=== PATIENT | female | born 1940 | race Caucasian/White ===

== ENCOUNTER 2017-09-05 01:53 | Outpatient (CLI) | payer MEDICARE, MEDICAID ==
--- NOTE | ~2017-09-05 | HEMODYNAMI ---
PATIENT:WILL HAYNES MEDICAL RECORD: [id number] : 40 [facility] ADMISSION DATE: 09/05/17 Generatedon:09/05/201711:07 Patient name: WILL HAYNES Patient #: [id number] SSN: : 1940 Date of study: 09/05/2017 Page: Of Hemodynamic Procedure Report Patient Data Patient Demographics Procedure consent was obtained First Name: WILL Gender: Female Last Name: DALLAS : 1940 Middle Initial: M Age: 77 year(s) Patient #: [id number] Race: Additional ID: [id number] Contact details Address: [facility] [address] State: [place] City: [place] Zip code: [address] Admission Admission Data Admission Date: 09/05/2017 Admission Time: 4:14 Admit Source: Other Room #: D.2123 Weight (lbs.): 176.37 Weight (kg.): 80 Procedure Procedure Types Cath Procedure Diagnostic Procedure C [facility] w/Coronaries Miscellaneous Procedures Moderate Sedation up to 15 minutes Peripheral Cath Diagnostic Procedure Cath Peripheral Four Vessel Arteriogram Procedure Description Procedure Date Procedure Date: 09/05/2017 Procedure Start Time: 10:52 Procedure End Time: 11:06 Procedure Staff Name Function Jerod King MD Performing Physician Jessica Monique RT Scrub Daily Sandoval RN Nurse Aleks Best RT Monitor Procedure Data Cath Procedure Fluoroscopy Diagnostic fluoroscopy Total fluoroscopy Time: 4.8 time: 4.8 min min Diagnostic fluoroscopy Total fluoroscopy dose: 448 dose: 448 mGy mGy Contrast Material Contrast Material Type Amount (ml) Isovue 300 127 Entry Location Entry Primary Successful Side Size Upsize Upsize Entry Closure Succes sful Closure Location (Fr) 1 (Fr) 2 (Fr) Remarks Device Remarks Femoral Right 5 Fr Exoseal artery Estimated blood loss: 10 ml Diagnostic catheters Device Type Used For End Catheter Placement Cordis 5Fr JL 4.0 Procedure Catheter (MP) Cordis 5Fr 3DRC Catheter Procedure (MP) Cordis 5Fr Pigtail Procedure Catheter (MP) Procedure Complications No complications Procedure Medications Medication Administration Route Dosage Oxygen NC 2 l/min Heparin Flush Bag added to field 2 bags (1000units/500ml NS) 0.9% NaCl I.V. 100 ml/hr Lidocaine 2% added to field 20 Versed I.V. 1 mg Fentanyl I.V. 50 mcg Versed I.V. 1 mg Fentanyl I.V. 50 mcg Hemodynamics Rest Heart Rate: 64 (bpm) Pressure Samples Time Site Value (mmHg) Purpose Heart Use Rate(bpm) 10:53 AO 119/49(75) Snapshot 61 11:02 LV 134/12,21 Snapshot 64 11:02 AO 147/53(82) Pullback 64 11:02 LV 132/17,23 Pullback 64 Gradients Valve Time Site 1 Site 2 Mean SEP/DFP Peak To Heart Use (mmHg) (sec/min) Peak Rate (mmHg) (bpm) Aortic 11:02 LV AO 0 14 0 64 132/17,23 147/53(82) Calculations Valve P-P Mean Valve Index Valve Source Name Gradient Area Flow (cm2) Aortic 0 0 0 0 Snapshots Pre Cath Intra NCS Post Cath Vital Signs Time Heart Resp SPO2 etCO2 NIBP (mmHg) Rhythm Pain Sedation Rate (ipm) (%) (mmHg) Status Level (bpm) 10:42:45 62 19 98 41.3 173/77(128) NSR 0 (11) 10(A) , No pain 10:47:54 60 20 95 43.5 156/65(104) NSR 0 (11) 10(A) , No pain 10:53:05 57 15 97 45 144/54(101) NSR 0 (11) 9(A) , No pain 10:58:13 62 20 96 42.8 146/71(103) NSR 0 (11) 10(A) , No pain 11:03:22 62 16 97 47.3 148/66(104) NSR 0 (11) 10(A) , No pain Medications Time Medication Route Dose Verified Delivered Reason Notes Effe ctiveness by by 10:45:24 Oxygen NC 2 Jerod Ambrosio used for l/min St. Matt Sandoval RN procedure 10:46:09 Heparin Flush added 2 Jerod Newsome used for Bag to bags St. Matt King procedure (1000units/500ml field MD CABRERA NS) 10:46:19 0.9% NaCl I.V. 100 Jerod Buffie Per ml/hr Aptos Lori RN physician 10:46:37 Lidocaine 2% added 20ml Jerod Southory for local to vial [facility] anesthetic field MD CABRERA 10:48:43 Versed I.V. 1 mg [address] [facility]. Matt Sandoval RN sedation 10:48:55 Fentanyl I.V. 50 Jerod Buff[address] for mcg [facility] Matt Sandoval RN sedation 10:53:12 Versed I.V. 1 mg Jerod Buffie for ChristineMatt Sandoval RN sedation 10:53:16 Fentanyl I.V. 50 Jerod Buffie for [facility] Matt Sandoval RN sedation Procedure Log Time Note 10:15:37 Aleks Best RT(R) sent for patient. Start room use. 10:24:26 Admit Source: Other 10:24:44 Patient Weight : 176.37 lbs 10:24:58 Procedure type changed to Cath procedure, Diagnostic procedure, LHC, LHC w/Coronaries, Miscellaneous Procedures, Moderate Sedation up to 15 minutes, Peripheral Cath Diagnostic Procedure, Cath Peripheral, Four Vessel Arteriogram 10:25:12 Diagnostic Cath Status : Elective 10:25:38 Time tracking: Call back 10:26:11 Plan of Care:Hemodynamics will remain stable., Cardiac rhythm will remain stable., Comfort level will be maintained., Respiratory function will remain adequate., Patient/ family verbilizes understanding of procedure., Procedure tolerated without complication., Recovers from procedure without complications.. 10:35:35 Patient received from PCU to CCL 1 Alert and oriented. Tansferred to table in Supine position. 10:35:36 Warm blankets applied, and cheli hugger turned on for patient comfort. 10:35:36 Correct patient and procedure confirmed by team. 10:35:37 Signed procedure consent form obtained from patient. 10:35:38 ECG and BP/O2 sat monitors applied to patient. 10:40:35 Vital chart was started 10:40:36 Baseline sample Acquired. 10:40:40 Rhythm: sinus rhythm 10:40:41 Full Disclosure recording started 10:40:44 H&P Date Dictated: 09/05/2017 Within 30 days and on chart.. 10:40:45 Pre-procedure instructions explained to patient. 10:40:45 Pre-op teaching completed and patient verbalized understanding. 10:40:47 Family in patients room. 10:40:48 Patient NPO since Midnight. 10:40:49 Is the patient allergic to Iodine/contrast media? No. 10:40:51 Is patient on blood thinner?No 10:40:52 Patient diabetic? Yes. 10:40:53 If diabetic: On Metformin? No 10:40:55 Patient not . Patient is over age 55. 10:42:07 Previous problem with sedation/anesthesia? No ? 10:42:08 Snore? Yes 10:42:09 Sleep apnea? No 10:42:10 Deviated septum? No 10:42:11 Opens mouth fully? Yes 10:42:12 Sticks out tongue? Yes 10:42:14 Airway obstruction? No possible asthma 10:42:16 Dentures? No ? 10:42:19 Pre procedure: right dorsailis pedis pulse 1+ Palpable, but thready & weak; easily obliterated 10:42:21 Patient pain scale 0/10 ?. 10:42:49 IV patent on arrival in left antecubital with 0.9% NaCl at O. 10:42:51 Lab results completed and on chart. 10:42:54 Right groin area was prepped with chlora-prep and draped in sterile fashion 10:42:55 Alarms reviewed by R. N. 10:42:56 Sharps counted by scrub and verified by R.N. 10:42:57 Physician paged 10:43:00 Use device set Femoral Dx 10:43:01 Tegaderm 4 x 4 opened to sterile field. 10:43:02 Acist Hand Control opened to sterile field. 10:43:02 Acist Manifold opened to sterile field. 10:43:03 Acist Syringe opened to sterile field. 10:43:04 Bag Decanter opened to sterile field. 10:43:04 Medline Cath Pack opened to sterile field. 10:43:04 Terumo 5Fr [place] Sheath opened to sterile field. 10:43:05 St Haim 260cm J .035 wire opened to sterile field. 10:43:06 Diagnostic Infinity 5Fr Multipack catheter opened to sterile field. 10:45:24 Oxygen 2 l/min NC was administered by Daily Sandoval RN; used for procedure; 10:46:09 Heparin Flush Bag (1000units/500ml NS) 2 bags added to field was administered by Jerod King MD; used for procedure; :46:13 --------ALL STOP TIME OUT------ 10:46:13 Final Timeout: patient, procedure, and site verified with staff and physician. All members of the team are in agreement. 10:46:17 Right groin site verified by team. 10:46:19 0.9% NaCl 100 ml/hr I.V. was administered by Daily Sandoval RN; Per physician; 10:46:20 Physical assessment completed. ASA score P 2 - A patient with mild systemic disease as per Jerod King MD. 10:46:26 Sedation plan: IV Moderate Sedation Versed, Fentanyl 10:46:37 Lidocaine 2% 20ml vial added to field was administered by Jerod King MD; for local anesthetic; 10:48:43 Versed 1 mg I.V. was administered by Daily Sandoval RN; for sedation; 10:48:55 Fentanyl 50 mcg I.V. was administered by Daily Sandoval RN; for sedation; 10:52:40 Procedure started. 10:52:42 Local anesthetic to right femoral artery with Lidocaine 2% by Jerod King MD.INITIAL ACCESS ONLY 10:53:12 Versed 1 mg I.V. was administered by Daily Sandoval RN; for sedation; 10:53:16 Fentanyl 50 mcg I.V. was administered by Daily Sandoval RN; for sedation; 10:53:34 A 5 Fr sheath was inserted into the Right Femoral artery 10:53:39 A Cordis 5Fr JL 4.0 Catheter (MP) was advanced over the wire and used for Procedure. 10:53:50 LCA angiography performed. 10:54:17 Catheter removed. 10:54:22 A Cordis 5Fr 3DRC Catheter (MP) was advanced over the wire and used for Procedure. 10:55:21 RCA angiography performed. 10:58:11 Right carotid angiography performed. 10:58:16 Left carotid angiography performed. 11:00:30 Catheter removed. 11:00:36 A Cordis 5Fr Pigtail Catheter (MP) was advanced over the wire and used for Procedure. 11:01:52 LV angiography performed. 11:01:54 LV gram done using GUNN 11:01:59 EF : 55 % 11:02:00 LV hemodynamics recorded. 11:02:08 Injector settings: Ml/sec: 10, Volume: 20, 11:02:36 Catheter removed. 11:02:47 Cordis 5Fr Exoseal opened to sterile field. 11:02:57 Sheath removed intact; hemostasis achieved with Exoseal to the Right Femoral artery. 11:02:58 Procedure ended.(Physican Out) 11:03:13 Contrast amount:Isovue 300 127ml. 11:03:18 Fluoroscopy time 04.80 minutes. 11:03:22 Flurop Dose total: 448 11:03:22 Fluoroscopy dose: 448 mGy 11:03:45 Sharps counted by scrub and verified by R.N. 11:03:46 Insertion/operative site no bleeding no hematoma. 11:03:48 Post-op/insertion site Right Femoral artery dressed using a 4 x 4 and Tegaderm. 11:03:50 Post Procedure Pulses reassessed and unchanged 11:03:52 Post-procedure physical assessment completed. ASA score P 2 - A patient with mild systemic disease as per Jerod King MD. 11:03:55 Post procedure rhythm: unchanged. 11:03:57 Estimated blood loss: 10 ml 11:03:59 Post procedure instruction explained to patient.Patient verbalizes understanding. 11:03:59 Patient needs reinforcement of post procedure teaching. 11:04:00 Procedure and supply charges have been captured, reviewed, submitted and are correct. 11:04:03 Procedure Complication : No complications 11:06:33 Vital chart was stopped 11:06:33 See physician's report for complete and final results. 11:06:37 Report given to PCU. 11:06:40 Patient transfered to PCU with Bed. 11:06:42 Procedure ended. 11:06:42 Full Disclosure recording stopped 11:06:46 End room use (Document Last) Device Usage Item Name Manufacture Quantity Catalog Hospital Part Current Minimal Lo t# / Number Charge Number Stock Stock Serial# Code Tegaderm 4 3M 1 [id number] [id number] [id number] 5 x 4 Acist Hand Acist 1 87612 691168 682077 153297 5 NuLife Recovery Acist Acist 1 64380 366852 992498 530858 5 Manifold [employer] Inc Acist Acist 1 77513 273945 263388 069056 20 Syringe Medical Systems Inc Bag Microtek 1 2002S 927885 07190 433140 5 Decanter [employer] Inc. Medline Cardinal 1 [id number] 247712 34548 661530 5 Cath Pack Health Terumo 5Fr Terumo 1 [id number] 108710 108749 831866 [address] Haim 1 620644 465688 201121 968536 30 260cm J .035 wire Diagnostic Cardinal 1 [id number] 278614 81829 309581 30 Infinity Health 5Fr Multipack catheter Cordis 5Fr Cardinal 1 775319 5 JL 4.0 Health Catheter (MP) Cordis 5Fr Cardinal 1 267074 5 3DRC Health Catheter (MP) Cordis 5Fr Cardinal 1 653911 5 Pigtail Health Catheter (MP) Cordis 5Fr Cardinal 1 EX500 786438 592761 757439 10 Tocagen Signature Audit Hannibal Stage Time Signature Unsigned Intra-Procedure 09/05/2017 Aleks Best 11:07:02 AM RT(R) Signatures Monitor : Aleks Best RT Signature : Date : Time : [id number] [place] [address]
[~2017-09-05 01:53] MED LIST: BAYER CHEWABLE81 MG PO; BRILINTA90 MG PO; COZAAR50 MG PO; HYDROCHLOROTHIA50 MG PO; JANUVIA100 MG PO; METOPROLOL TART50 MG PO; NITROQUICK0.4 MG SL; PRILOSEC20 MG PO; SYNTHROID50 MCG PO; ZOCOR20 MG PO
[2017-09-05 02:21] LABS: BASOPHILS 0.3 % (0-2); EOSINOPHILS 1.4 % (0-7); HEMATOCRIT 41.3 % (36.0-48.0); HEMOGLOBIN 13.7 g/dL (12-16); IMMATURE GRANULOCYTES 0.3 % (0-5); LYMPHOCYTES 16.7 % (15-50); MCHC 33.2 g/dL (31.0-37.0); MCV 93.4 fL (80.0-100.0); MEAN PLATELET VOLUME 9.3 fL (7.4-10.4); MONOCYTES 5.8 % (2-11); NEUTROPHILS 75.5 % (40-80); PLATELET COUNT 199 10x3/uL (130-400); RBC 4.42 10x6/uL (4.00-5.40); RDW 12.3 % (11.5-14.5); WBC 14.4 10x3/uL (4.8-10.8)
[2017-09-05 02:34] LABS: ALBUMIN 3.3 g/dL (3.4-5.0); ALKALINE PHOSPHATASE 79 U/L (46-116); ALT (SGPT) 21 U/L (10-68); CALC OSMOLALITY 285 mosm/kg (275-300); CALCIUM 8.2 mg/dL (8.5-10.1); CARBON DIOXIDE 31.3 mmol/L (21.0-32.0); CHLORIDE - SERUM 102 mmol/L (98-107); CREATININE - SERUM 1.1 mg/dL (0.6-1.3); GLUCOSE 174 mg/dL (74-106); POTASSIUM - SERUM 3.4 mmol/L (3.5-5.1); PROTEIN - SERUM 6.9 g/dL (6.4-8.2); SODIUM 140 mmol/L (136-145); UREA NITROGEN 22 mg/dL (7-18); eGFR NON AFRICAN AMERICAN 51 mL/min (90-120)
[2017-09-05 02:52] LABS: CKMB 0.2 U/L (0.0-3.6); CREATINE KINASE 37 UL (21-215)
[2017-09-05 02:53] LABS: CHOL - HDL RATIO 2.5 ratio (2.3-4.1); CHOLESTEROL, TOTAL 172 mg/dL (0-200); HDL CHOLESTEROL 68 mg/dL (32-96); LDL CHOLESTEROL 84 mg/dL (0-100); LDL-HDL RATIO 1.2 ratio (1.5-3.5); TRIGLYCERIDE 103 mg/dL (30-200)
[2017-09-05 04:00] VITALS: BP 149/47
--- NOTE | 2017-09-05 04:48 | NUR ---
PATIENT ARRIVED FROM THE ER VIA STRETCHER, SON IS AT BEDSIDE. ALERT AND ORIENTED TO ROOM AND CALL LIGHT. 18 G IV IN LEFT AC SALINE LOCKED. CALL LIGHT PLACED IN REACH.
[2017-09-05] MEDS ORDERED: PROPAFENONE HC225 MG PO (04:55)
[2017-09-05] MEDS ORDERED: VALIUM5 MG PO (04:56)
[2017-09-05 05:14] VITALS: BP 149/47; BMI 32.2
--- NOTE | 2017-09-05 05:20 | NUR ---
ADMISSION ASSESSMENT DONE. VSS. SB PER CM HR 59. PT DENIES ANY DISCOMFORT. WILL CONTINUE TO MONITOR.
[2017-09-05 08:00] VITALS: BP 118/51
[2017-09-05 08:53] LABS: ANION GAP 17.9 mmol/L (8-16); BASOPHILS 0.3 % (0-2); CALCIUM 8.3 mg/dL (8.5-10.1); CARBON DIOXIDE 21.6 mmol/L (21.0-32.0); CREATININE - SERUM 1.1 mg/dL (0.6-1.3); EOSINOPHILS 0.8 % (0-7); HEMATOCRIT 39.8 % (36.0-48.0); HEMOGLOBIN 13.2 g/dL (12-16); IMMATURE GRANULOCYTES 0.3 % (0-5); LYMPHOCYTES 19.7 % (15-50); MCH 31.4 pg (26.0-34.0); MCHC 33.2 g/dL (31.0-37.0); MCV 94.5 fL (80.0-100.0); MEAN PLATELET VOLUME 9.8 fL (7.4-10.4); NEUTROPHILS 72.9 % (40-80); PLATELET COUNT 211 10x3/uL (130-400); POTASSIUM - SERUM 3.5 mmol/L (3.5-5.1); RBC 4.21 10x6/uL (4.00-5.40); RDW 12.5 % (11.5-14.5)
[2017-09-05 08:54] LABS: WBC 10.7 10x3/uL (4.8-10.8)
--- NOTE | 2017-09-05 10:30 | NUR ---
TO LOCAL COORDINATOR
--- NOTE | 2017-09-05 10:35 | NUR ---
ASSESSMENT COMPLETED.SL TO LEFT AC. O2 AT 3 L/M PER TN TELEMERTY SHOW SB. DENIES ANY NEEDS, READY FOR X RAY PHYSICIAN
--- NOTE | 2017-09-05 11:01 | NUR ---
ASSESSMENT COMPLETED. DENIES ANY NEEDS. TELEMERTY SHOWS PREEIT CARDIA AT 56. NPO FOR CATH. SR UP WITH CALL LIGHT IN REACH. WII MONITOR
--- NOTE | 2017-09-05 13:22 | NUR ---
LYING QUIETLY WITH EYES CLOSED. RIGHT GROIN SOFT WITH DRSG DRY AND INTACT. FAMILY AT BEDSIDE. V/S STABLE. CALL LIGHT IN REACH WITH SR UP
--- NOTE | 2017-09-05 16:02 | NUR ---
DISCHARGED. IV DCD WITH TIP INTACT. NO BLEEDING FROM CATH SITE. T0 PRIVATE CAR PER WHEEL CHAIR
--- NOTE | 2017-09-07 11:08 | OP ---
PATIENT NAME: WILL HAYNES MEDICAL RECORD: [id number] :40 LOCATION:D. D.3 ADMISSION DATE:09/05/17 SURGEON: MAINE WEST MD DATE OF OPERATION: 09/05/2017 PROCEDURE: Left heart catheterization, selective coronary angiography, right femoral artery approach, as well as 4-vessel arteriography. CATHETERS: A 5-Maltese sheath, 5/4 left and right Freddy, 5/4 pig. The procedure was well tolerated. The patient returned to the arredondo, sheath removed and adequate hemostasis was obtained. FINDINGS: Left ventriculography 30-degree GUNN view: Normal wall motion, normal systolic function. CORONARY ANATOMY: LEFT MAIN: Left main is free of disease. LAD: Free of disease in the diagonal system. CIRCUMFLEX: Free of disease in the marginal system. RIGHT CORONARY ARTERY: Dominant artery, gives rise to PDA. The area of previous stenting is widely patent. No progression of inaja disease. FOUR-VESSEL: RIGHT: Right common carotid is a smooth walled vessel, free of disease. Right external carotid, smooth-walled vessel, free of disease. Right internal carotid, smooth-walled vessel, free of disease. LEFT SYSTEM: Left common carotid smooth-walled vessel, free of disease. Left external carotid, smooth-walled vessel, free of disease. Left internal carotid vessel, smooth-walled vessel, free of disease. IMPRESSION: Normal 4-vessel arteriography. No progression of inaja stenosis, no restenosis, normal left ventricular function. TRANSINT:[id number] Voice Confirmation ID: [id number] DOCUMENT ID: [id number] MAINE WEST MD at 1108 CC: [id number] DICTATION DATE: 09/05/17 1106 PLUMBER'S HELPER: 09/05/17 1121 DIS IN 09/05/17 [facility] [address] [place] [address]
--- NOTE | 2017-09-21 13:13 | CN ---
PATIENT NAME:WILL HAYNES MEDICAL RECORD: [id number] : 40 LOCATION:[facility] ADMIT DATE: ACCOUNT: [id number] CONSULTING PHYSICIAN: MAINE WEST MD REFERRING PHYSICIAN: MAYI MORENO MD DATE OF CONSULTATION: 09/05/2017 HISTORY OF PRESENT ILLNESS: A 77-year-old female, known to me, with a history of cardiac arrhythmias with nonsustained SVT as well as coronary artery disease, status post intervention 18 months ago. She has been having intermittent chest tightness and pressure consistent with angina, this is usually occurring when pushing her 's wheelchair, had episode of rest symptoms last night. Enzymes were negative. ECG shows nonspecific ST-T changes. We are asked to see her concerning cardiovascular status. PAST MEDICAL HISTORY: 1. History of hypertension. 2. Cardiac arrhythmias, nonsustained SVT. 3. Dyslipidemia. 4. Hypothyroidism, on replacement. 5. Diabetes mellitus. ALLERGIES: None known. MEDICATIONS: Typically include propafenone 225 b.i.d., Synthroid 50 mcg every day, Januvia 100 mg every day, hydrochlorothiazide 25 every day, Valium 5 b.i.d., aspirin 81 every day, metoprolol 50 b.i.d., simvastatin 20 every day, Cozaar 50 every day. SOCIAL HISTORY: . Nonsmoker and nondrinker. Takes care of her ADLs as well as has to assist her quite a bit. REVIEW OF SYSTEMS: The patient reports easy bruising but reports no swollen glands. The patient reports no fever, no night sweats, no significant weight gain, no significant weight loss. No significant exercise tolerance. The patient reports no dry eyes, no irritation, no vision change. Patient reports no difficulty hearing and no ear pain. Patient reports no frequent nose bleeds or nose and sinus problems. Patient reports on arm pain on exertion. No shortness of breath while lying down. No history of heart murmur. Patient reports no cough, no wheezing or coughing up blood. Patient reports no abdominal pain, no vomiting. Normal appetite. No diarrhea and not vomiting blood. No nausea and no constipation. Patient reports no incontinence. No difficulty urinating. No hematuria. No increased frequency. Patient reports no muscle aches. No weakness, no arthralgias, no back pain. No swelling of the extremities. Patient reports no abnormal mole, no jaundice, no rashes. Reports no loss of consciousness. No weakness and no numbness. No seizures, dizziness, or headaches. The patient reports no depression, no sleep disturbance, feeling safe in a relationship and no alcohol abuse. Patient reports on fatigue. Reports no runny nose or sinus pressure. No itching, no hives, and no frequent sneezing. Report amaurosis fugax per patient and family. PHYSICAL EXAMINATION: GENERAL: Pleasant female, in no acute distress, appears stated age. VITAL SIGNS: Blood pressure 149/47, pulse 89 and regular. HEENT: Normocephalic, atraumatic. CONSULT REPORT [id number] WILL HAYNES NECK: No JVD or bruit. HEART: Regular. LUNGS: Ibarra clear. ABDOMEN: Soft, nontender. EXTREMITIES: Pulses 2+ with no edema. DIAGNOSTIC DATA: ECG without acute change. IMPRESSION: Accelerated angina, known history of coronary artery disease. PLAN: Angiography intervention if indicated. TRANSINT:[id number] Voice Confirmation ID: [id number] DOCUMENT ID: [id number] 09/11/[address] Christine WEST,MAINE Wade MD at 1313 CC: [id number] DICTATION DATE: 09/05/17 09 MARGIN ANALYST: 09/05/17 1043 DEP CLI 09/05/17 [id number] [place] [address]
== END 2017-09-05 16:10 | disposition home or self-care (01) ==
LOC: OBSVTIME → D.OPS 01:53 → D.ER 01:53 → D.M2 04:14 → D.ER 04:14 → OBSVTIME 04:14 → EDSTATUS 14:40 → D.OPS 16:10 → D.M2 16:10
PROVIDERS: Emergency Medicine; Internal Medicine Interventional Cardiology
DX: R07.9 Chest pain, unspecified (principal); I25.10 Atherosclerotic heart disease of native coronary artery without angina pectoris; Z95.5 Presence of coronary angioplasty implant and graft; I10 Essential (primary) hypertension; E78.5 Hyperlipidemia, unspecified; E03.9 Hypothyroidism, unspecified; E11.65 Type 2 diabetes mellitus with hyperglycemia; E11.40 Type 2 diabetes mellitus with diabetic neuropathy, unspecified

== ENCOUNTER 2018-01-08 11:20 | Inpatient (IN) | payer MEDICARE, MEDICAID ==
[~2018-01-08 11:20] MED LIST changes: +PROPAFENONE HC225 MG PO; +VALIUM5 MG PO
[2018-01-08 12:14] LABS: BASOPHILS 0.3 % (0-2); EOSINOPHILS 1.1 % (0-7); HEMATOCRIT 43.6 % (36.0-48.0); HEMOGLOBIN 14.9 g/dL (12-16); IMMATURE GRANULOCYTES 0.4 % (0-5); MCH 30.4 pg (26.0-34.0); MCHC 34.2 g/dL (31.0-37.0); MEAN PLATELET VOLUME 9.2 fL (7.4-10.4); MONOCYTES 12.7 % (2-11); NEUTROPHILS 70.5 % (40-80); PLATELET COUNT 201 10x3/uL (130-400); RDW 12.5 % (11.5-14.5); WBC 11.8 10x3/uL (4.8-10.8)
[2018-01-08 12:22] LABS: APPEARANCE SLT CLOUDY (CLEAR); BILIRUBIN NEGATIVE (NEGATIVE); COLOR DK YELLOW (YELLOW); GLUCOSE NEGATIVE (NEGATIVE); KETONE SMALL mg/dL (NEGATIVE); NITRITE NEGATIVE (NEGATIVE); PROTEIN NEGATIVE (NEGATIVE); SPECIFIC GRAVITY 1.025 (1.005-1.020); UROBILINOGEN NORMAL (NORMAL)
[2018-01-08 12:23] LABS: BACTERIA MANY /hpf (NONE SEEN); EPITHELIAL CELLS 0-5 /hpf (0-5); MUCUS <1+ /lpf (NONE SEEN); WHITE CELLS - URINE 0-5 /hpf (0-5)
[2018-01-08 12:27] LABS: ALBUMIN 3.4 g/dL (3.4-5.0); ANION GAP 12.7 mmol/L (8-16); BILIRUBIN - TOTAL 0.83 mg/dL (0.2-1.3); CALCIUM 8.6 mg/dL (8.5-10.1); CARBON DIOXIDE 28.4 mmol/L (21.0-32.0); CREATININE - SERUM 1.3 mg/dL (0.6-1.3); POTASSIUM - SERUM 3.1 mmol/L (3.5-5.1); PROTEIN - SERUM 7.3 g/dL (6.4-8.2)
[2018-01-08] MEDS ORDERED: OMEPRAZOLE20 M1 PO (17:42)
[2018-01-08] MEDS ORDERED: LODINE400 MG PO (17:43)
[2018-01-08] MEDS ORDERED: PROPAFENONE HC225 MG PO (17:43)
[2018-01-08 18:07] VITALS: BP 105/58; BMI 33.2
[2018-01-08 20:54] VITALS: BP 108/51
[2018-01-09 00:53] VITALS: BP 108/37
[2018-01-09 04:47] VITALS: BP 138/42
[2018-01-09 06:05] LABS: BASOPHILS 0.3 % (0-2); EOSINOPHILS 1.2 % (0-7); HEMATOCRIT 36.6 % (36.0-48.0); HEMOGLOBIN 12.3 g/dL (12-16); IMMATURE GRANULOCYTES 0.4 % (0-5); LYMPHOCYTES 19.1 % (15-50); MCH 29.7 pg (26.0-34.0); MCHC 33.6 g/dL (31.0-37.0); MCV 88.4 fL (80.0-100.0); MEAN PLATELET VOLUME 8.9 fL (7.4-10.4); MONOCYTES 12.5 % (2-11); NEUTROPHILS 66.5 % (40-80); RBC 4.14 10x6/uL (4.00-5.40); RDW 12.5 % (11.5-14.5)
[2018-01-09 06:07] LABS: PLATELET COUNT 153 10x3/uL (130-400); WBC 7.3 10x3/uL (4.8-10.8)
[2018-01-09 06:22] LABS: ALBUMIN 2.6 g/dL (3.4-5.0); ANION GAP 11.8 mmol/L (8-16); BILIRUBIN - TOTAL 0.73 mg/dL (0.2-1.3); CALCIUM 7.8 mg/dL (8.5-10.1); CARBON DIOXIDE 27.5 mmol/L (21.0-32.0); CREATININE - SERUM 0.9 mg/dL (0.6-1.3); POTASSIUM - SERUM 3.3 mmol/L (3.5-5.1); PROTEIN - SERUM 5.9 g/dL (6.4-8.2)
[2018-01-09 08:10] VITALS: BP 113/47
[2018-01-09 11:31] VITALS: BP 132/30
[2018-01-09 14:02] VITALS: BMI 34.0
[2018-01-09 15:34] VITALS: BP 144/58
[2018-01-09 19:00] VITALS: BP 142/83
[2018-01-10] VITALS: BP 153/52
[2018-01-10 04:00] VITALS: BP 157/47
[2018-01-10 05:32] LABS: BASOPHILS 0.4 % (0-2); EOSINOPHILS 2.3 % (0-7); HEMATOCRIT 34.8 % (36.0-48.0); HEMOGLOBIN 11.5 g/dL (12-16); IMMATURE GRANULOCYTES 0.6 % (0-5); LYMPHOCYTES 35.2 % (15-50); MCH 29.5 pg (26.0-34.0); MCV 89.2 fL (80.0-100.0); MEAN PLATELET VOLUME 8.8 fL (7.4-10.4); NEUTROPHILS 49.5 % (40-80); PLATELET COUNT 141 10x3/uL (130-400); RDW 12.6 % (11.5-14.5)
[2018-01-10 05:38] LABS: WBC 4.8 10x3/uL (4.8-10.8)
[2018-01-10 05:49] LABS: ALBUMIN 2.6 g/dL (3.4-5.0); ALKALINE PHOSPHATASE 80 U/L (46-116); CARBON DIOXIDE 24.6 mmol/L (21.0-32.0); CHLORIDE - SERUM 106 mmol/L (98-107); GLUCOSE 157 mg/dL (74-106); PROTEIN - SERUM 5.2 g/dL (6.4-8.2); SODIUM 142 mmol/L (136-145)
[2018-01-10 05:50] LABS: CALC OSMOLALITY 282 mosm/kg (275-300); CREATININE - SERUM 0.6 mg/dL (0.6-1.3); UREA NITROGEN 5 mg/dL (7-18); eGFR NON AFRICAN AMERICAN > 90 mL/min (90-120)
[2018-01-10 05:51] LABS: ALT (SGPT) 42 U/L (10-68); POTASSIUM - SERUM 2.8 mmol/L (3.5-5.1)
[2018-01-10 08:24] VITALS: BP 141/60
[2018-01-10 11:36] VITALS: BP 190/59
[2018-01-10 15:41] VITALS: BP 150/57
[2018-01-10 20:00] VITALS: BP 172/67
[2018-01-11] VITALS: BP 166/66
[2018-01-11 04:00] VITALS: BP 168/65
[2018-01-11 05:55] LABS: BASOPHILS 0.4 % (0-2); EOSINOPHILS 3.3 % (0-7); HEMATOCRIT 33.7 % (36.0-48.0); IMMATURE GRANULOCYTES 0.8 % (0-5); LYMPHOCYTES 31.7 % (15-50); MCH 29.4 pg (26.0-34.0); MCHC 32.6 g/dL (31.0-37.0); MCV 90.1 fL (80.0-100.0); MEAN PLATELET VOLUME 9.2 fL (7.4-10.4); MONOCYTES 9.7 % (2-11); NEUTROPHILS 54.1 % (40-80); PLATELET COUNT 148 10x3/uL (130-400); RBC 3.74 10x6/uL (4.00-5.40); RDW 12.7 % (11.5-14.5); WBC 5.1 10x3/uL (4.8-10.8)
[2018-01-11 06:31] LABS: ALBUMIN 2.4 g/dL (3.4-5.0); ALKALINE PHOSPHATASE 71 U/L (46-116); BILIRUBIN - TOTAL 0.47 mg/dL (0.2-1.3); CALCIUM 7.6 mg/dL (8.5-10.1); CARBON DIOXIDE 26.3 mmol/L (21.0-32.0); CHLORIDE - SERUM 107 mmol/L (98-107); CREATININE - SERUM 0.6 mg/dL (0.6-1.3); GLUCOSE 140 mg/dL (74-106); PROTEIN - SERUM 5.4 g/dL (6.4-8.2); SODIUM 143 mmol/L (136-145); eGFR NON AFRICAN AMERICAN > 90 mL/min (90-120)
[2018-01-11 06:37] LABS: ALT (SGPT) 30 U/L (10-68); CALC OSMOLALITY 282 mosm/kg (275-300); UREA NITROGEN 2 mg/dL (7-18)
[2018-01-11 08:42] VITALS: BP 157/55
[2018-01-11 11:43] VITALS: BP 132/47
[2018-01-11 17:20] VITALS: BP 125/78
[2018-01-11 20:00] VITALS: BP 136/49
[2018-01-12 04:00] VITALS: BP 161/60
[2018-01-12 05:46] LABS: BASOPHILS 0.6 % (0-2); EOSINOPHILS 3.5 % (0-7); HEMATOCRIT 34.5 % (36.0-48.0); HEMOGLOBIN 11.2 g/dL (12-16); IMMATURE GRANULOCYTES 0.6 % (0-5); LYMPHOCYTES 29.8 % (15-50); MCH 29.3 pg (26.0-34.0); MCHC 32.5 g/dL (31.0-37.0); MCV 90.3 fL (80.0-100.0); MEAN PLATELET VOLUME 9.1 fL (7.4-10.4); MONOCYTES 10.3 % (2-11); NEUTROPHILS 55.2 % (40-80); PLATELET COUNT 169 10x3/uL (130-400); RBC 3.82 10x6/uL (4.00-5.40); WBC 5.1 10x3/uL (4.8-10.8)
[2018-01-12 06:01] LABS: ALBUMIN 2.4 g/dL (3.4-5.0); ANION GAP 10.5 mmol/L (8-16); BILIRUBIN - TOTAL 0.36 mg/dL (0.2-1.3); CALCIUM 7.5 mg/dL (8.5-10.1); CARBON DIOXIDE 28.1 mmol/L (21.0-32.0); POTASSIUM - SERUM 3.6 mmol/L (3.5-5.1); PROTEIN - SERUM 5.5 g/dL (6.4-8.2)
[2018-01-12 06:04] LABS: CREATININE - SERUM 0.8 mg/dL (0.6-1.3)
[2018-01-12 08:30] VITALS: BP 181/93
[2018-01-12 11:53] VITALS: BP 169/66
[2018-01-12 16:02] VITALS: BP 140/53
[2018-01-12 20:00] VITALS: BP 154/71
[2018-01-13] VITALS: BP 156/70
[2018-01-13 04:00] VITALS: BP 141/69
[2018-01-13 06:18] LABS: BASOPHILS 0.3 % (0-2); EOSINOPHILS 2.9 % (0-7); HEMATOCRIT 34.6 % (36.0-48.0); HEMOGLOBIN 11.5 g/dL (12-16); IMMATURE GRANULOCYTES 0.5 % (0-5); LYMPHOCYTES 32.2 % (15-50); MCH 29.6 pg (26.0-34.0); MCHC 33.2 g/dL (31.0-37.0); MCV 88.9 fL (80.0-100.0); MEAN PLATELET VOLUME 9.2 fL (7.4-10.4); MONOCYTES 11.3 % (2-11); NEUTROPHILS 52.8 % (40-80); PLATELET COUNT 167 10x3/uL (130-400); RBC 3.89 10x6/uL (4.00-5.40); RDW 12.7 % (11.5-14.5); WBC 5.8 10x3/uL (4.8-10.8)
[2018-01-13 06:40] LABS: ALBUMIN 2.4 g/dL (3.4-5.0); ALKALINE PHOSPHATASE 66 U/L (46-116); ALT (SGPT) 24 U/L (10-68); BILIRUBIN - TOTAL 0.36 mg/dL (0.2-1.3); CALC OSMOLALITY 277 mosm/kg (275-300); CALCIUM 7.5 mg/dL (8.5-10.1); CARBON DIOXIDE 28.8 mmol/L (21.0-32.0); CHLORIDE - SERUM 103 mmol/L (98-107); CREATININE - SERUM 0.7 mg/dL (0.6-1.3); GLUCOSE 139 mg/dL (74-106); POTASSIUM - SERUM 3.4 mmol/L (3.5-5.1); PROTEIN - SERUM 5.6 g/dL (6.4-8.2); SODIUM 140 mmol/L (136-145); UREA NITROGEN 5 mg/dL (7-18); eGFR NON AFRICAN AMERICAN 86 mL/min (90-120)
[2018-01-13 08:05] VITALS: BP 165/52
[2018-01-13 11:21] VITALS: BP 158/62
[2018-01-13] MEDS ORDERED: LEVAQUIN750 MG PO (13:01)
[2018-01-13] MEDS ORDERED: FLAGYL500 MG PO (13:02)
== END 2018-01-13 17:30 | disposition home or self-care (01) | DRG 392 ==
LOC: D.ER 11:20 → D.EDHOLD 14:48 → D.M2 14:48
PROVIDERS: Emergency Medicine
DX: K57.92 Diverticulitis of intestine, part unspecified, without perforation or abscess without bleeding (principal); N39.0 Urinary tract infection, site not specified; I10 Essential (primary) hypertension; E11.9 Type 2 diabetes mellitus without complications; I25.10 Atherosclerotic heart disease of native coronary artery without angina pectoris

== ENCOUNTER 2018-04-28 14:27 | Emergency (ER) | payer MEDICARE ==
[~2018-04-28] VITALS: Ht 157.5 cm; Wt 85.9 kg
[~2018-04-28 14:27] MED LIST changes: +FLAGYL500 MG PO; +LEVAQUIN750 MG PO; +LODINE400 MG PO; +OMEPRAZOLE20 M1 PO
[2018-04-28 14:58] VITALS: Ht 157.5 cm; Wt 85.9 kg
[2018-04-28] MEDS ORDERED: EC-NAPROSYN500 MG PO (15:02)
[2018-04-28 16:29] LABS: BASOPHILS 0.4 % (0-2); EOSINOPHILS 1.8 % (0-7); HEMATOCRIT 37.1 % (36.0-48.0); HEMOGLOBIN 12.4 g/dL (12-16); IMMATURE GRANULOCYTES 0.2 % (0-5); LYMPHOCYTES 23.7 % (15-50); MCH 30.5 pg (26.0-34.0); MCHC 33.4 g/dL (31.0-37.0); MCV 91.2 fL (80.0-100.0); MEAN PLATELET VOLUME 9.3 fL (7.4-10.4); MONOCYTES 6.9 % (2-11); PLATELET COUNT 178 10x3/uL (130-400); RBC 4.07 10x6/uL (4.00-5.40); RDW 12.7 % (11.5-14.5)
[2018-04-28 17:04] LABS: ALBUMIN 3.3 g/dL (3.4-5.0); ANION GAP 13.1 mmol/L (8-16); BILIRUBIN - TOTAL 0.43 mg/dL (0.2-1.3); CARBON DIOXIDE 27.9 mmol/L (21.0-32.0); CREATININE - SERUM 0.8 mg/dL (0.6-1.3); PROTEIN - SERUM 6.3 g/dL (6.4-8.2)
[2018-04-28 17:44] LABS: APPEARANCE CLEAR (CLEAR); COLOR YELLOW (YELLOW)
[2018-04-28 17:45] LABS: BILIRUBIN NEGATIVE (NEGATIVE); GLUCOSE NEGATIVE (NEGATIVE); KETONE NEGATIVE (NEGATIVE); NITRITE NEGATIVE (NEGATIVE); PROTEIN NEGATIVE (NEGATIVE); SPECIFIC GRAVITY 1.005 (1.005-1.020); UROBILINOGEN NORMAL (NORMAL)
[2018-04-28 19:53] VITALS: BP 156/48
== END 2018-04-28 19:53 | disposition home or self-care (01) ==
LOC: D.ER 14:27
PROVIDERS: Family Medicine
DX: R10.13 Epigastric pain (principal); R06.02 Shortness of breath; E11.9 Type 2 diabetes mellitus without complications; I10 Essential (primary) hypertension

== ENCOUNTER 2019-08-23 11:38 | Outpatient (CLI) | payer MEDICARE ==
[~2019-08-23] VITALS: Ht 157.5 cm; Wt 85.0 kg
--- NOTE | ~2019-08-23 | HEMODYNAMI ---
PATIENT:WILL HAYNES MEDICAL RECORD: [id number] : 40 LOCATION:[facility] ADMISSION DATE: 08/23/19 Generatedon:08/24/20198:38 Patient name: WILL HAYNES Patient #: [id number] SSN: [id number] : 1940 Date of study: 08/23/2019 Page: Of Hemodynamic Procedure Report Patient Data Patient Demographics Procedure consent was obtained First Name: WILL Gender: Female Last Name: D[place]AS : 1940 Middle Initial: M Age: 79 year(s) Patient #: [id number] Race: SSN: [id number] Additional ID: [id number] Contact details Address: [address] [place] [address] ROAD State: [place] City: [place] Zip code: [address] Past Medical History Allergies: No known allergies Admission Admission Data Admission Date: 08/23/2019 Admission Time: 11:38 Arrival Date: 08/23/2019 Arrival Time: 0:00 Admit Source: Other Insurance Payor: Medicare [facility] #: [id number] Height (in.): 62 BSA: 1.86 (m2) Height (cm.): 157.48 BMI: 34.2 (kg/m2) Weight (lbs.): 187 Weight (kg.): 84.82 Lab Results Lab Result Date: 08/23/2019 Lab Result Time: 0:00 Biochemistry Name Units Result Min Max BUN mg/dl 16 --(---*)-- 7 18 Creatinine mg/dl 0.9 --(-*--)-- 0.6 1.3 eGFR ml/min 64.68812 *-(----)-- 90 120 NONAFRICAN CBC Name Units Result Min Max Hematocrit % 42.9 --(*---)-- 42 54 Hemoglobin g/dl 14.4 --(*---)-- 13.5 17.5 Procedure Procedure Types Cath Procedure Diagnostic Procedure [facility] w/Coronaries Procedure Description Procedure Date Procedure Date: 08/23/2019 Procedure Start Time: 14:03 Procedure End Time: 14:16 Procedure Staff Name Function Katheryn Amilcar RT Scrub Jerod Hughes MD Performing Physician Margarita Ward RT Monitor Israel Wagner RN Nurse Cammy Ibarra RT Monitor Indication Dyspnea Procedure Data Cath Procedure Fluoroscopy Diagnostic fluoroscopy Total fluoroscopy Time: 2.5 time: 2.5 min min Diagnostic fluoroscopy Total fluoroscopy dose: 319 dose: 319 mGy mGy Contrast Material Contrast Material Type Amount (ml) Isovue 300 82 Entry Location Entry Primary Successful Side Size Upsize Upsize Entry Closure Succes sful Closure Location (Fr) 1 (Fr) 2 (Fr) Remarks Device Remarks Femoral Right 5 Fr Exoseal artery Estimated blood loss: 5 ml Diagnostic catheters Device Type Used For End Catheter Placement MULTIPACK JL 4.0 5Fr Left Coronary catheter Angiography MULTIPACK 3DRC 5Fr Right Coronary catheter Angiography MULTIPACK Pigtail 5 Fr LV Angiography catheter Procedure Complications No complications Procedure Medications Medication Administration Route Dosage 0.9% NaCl I.V. 100 ml/hr Oxygen etCO2 Nasal cannula 2 l/min Heparin Flush Bag added to field 2 bags (1000units/500ml NS) Lidocaine 2% added to field 20 Versed I.V. 1 mg Fentanyl I.V. 50 mcg Hemodynamics Rest BSA: 1.86 (m2) HGB: 14.4 (g/dl) O2 Consumption: Estimated: 166.87 (ml/min) O2 Co nsumption indexed: Estimated:89.72 (ml/min/m) Heart Rate: 69 (bpm) Pressure Samples Time Site Value (mmHg) Purpose Heart Use Rate(bpm) 14:09 LV 174/11,12 Snapshot 69 14:10 LV 297/19,-13 Pullback 70 14:10 AO 170/68(113) Pullback 70 Gradients Valve Time Site 1 Site 2 Mean SEP/DFP Peak To Heart Use (mmHg) (sec/min) Peak Rate (mmHg) (bpm) Aortic 14:10 LV AO 48 20 127 70 297/19,-13 170/68(113) Calculations Valve P-P Mean Valve Index Valve Source Name Gradient Area Flow (cm2) Aortic 127 48 127 48 Snapshots Pre Cath Intra NCS Post Cath Vital Signs Time Heart Resp SPO2 etCO2 NIBP (mmHg) Rhythm Pain Sedation Rate (ipm) (%) (mmHg) Status Level (bpm) 13:53:49 80 22 99 0 191/92(154) NSR 0 (11) 10(A) , No pain 13:58:23 69 18 99 37.6 168/80(110) NSR 0 (11) 10(A) , No pain 14:02:47 66 19 98 36.8 166/72(126) NSR 0 (11) 10(A) , No pain 14:08:11 69 15 98 36.8 165/72(123) NSR 0 (11) 9(A) , No pain 14:12:21 39 12 97 33 136/72(113) NSR 0 (11) 9(A) , No pain 14:17:22 70 16 98 38.3 169/65(124) NSR 0 (11) 9(A) , No pain Medications Time Medication Route Dose Verified Delivered Reason Notes Eff ectiveness by by 14:00:13 0.9% NaCl I.V. 100 Israel Israel Per ml/hr Kristy Wagner physician RN RN 14:00:22 Oxygen etCO2 2 Israel Israel for low 02 Nasal l/min Lorigan Lorigan sats cannula RN RN 14:00:34 Heparin Flush added 2 Israel Israel used for Bag to bags Lorigan [facility] procedure (1000units/500ml [facility] RN RN NS) 14:00:45 Lidocaine 2% added 20ml Israel Israel for local to vial Lorigan Lorigan anesthetic field RN RN 14:01:02 Versed I.V. 1 mg Israel Israel for Lorigan Lorigan sedation RN RN 14:01:10 Fentanyl I.V. 50 Israel Israel for mcg Lorigan Lorigan sedation RN party host/hostess Log Time Note 13:39:37 Time tracking: Regular hours (M-F 7:00 - 5:00) 13:39:40 Plan of Care:Hemodynamics will remain stable., Cardiac rhythm will remain stable., Comfort level will be maintained., Respiratory function will remain adequate., Patient/ family verbilizes understanding of procedure., Procedure tolerated without complication., Recovers from procedure without complications.. 13:39:43 Procedure Status Elective Heart Cath (OP). 13:39:44 Signed procedure consent form obtained from patient. 13:39:55 H&P Date Dictated: 08/18/2019 Within 30 days and on chart., H&P Addendum completed by physician on day of procedure. (MUST COMPLETE FOR ALL OUTPATIENTS). 13:40:01 Patient allergic to No known allergies 13:40:14 Patient Weight : 187 lbs 13:40:20 Patient Height : 62 inches 13:40:33 Arrival Date: 08/23/2019 12:00:00 AM 13:44:45 Insurance Payor : Medicare 13:44:47 Admit Source: Other 13:45:45 Patient received from Pre/Post Procedure Room to CCL 1 Alert and oriented. Tansferred to table in Supine position. 13:46:02 Lab Result : Hemoglobin 14.4 g/dl 13:46:02 Lab Result : Hematocrit 42.9 % 13:46:02 Lab Result : eGFR NONAFRICAN 64.39056 ml/min 13:46:02 Lab Result : BUN 16 mg/dl 13:46:02 Lab Result : Creatinine 0.9 mg/dl 13:50:16 ACC Patient presents with Stable Angina CCS Anginal Class 3--Marked limitation of physical activity, angina occurs with ordinary activity.. 13:51:33 Warm blankets applied, and cheli hugger turned on for patient comfort. 13:51:38 Correct patient and procedure confirmed by team. 13:51:39 ECG and BP/O2 sat monitors applied to patient. 13:51:40 Vital chart was started 13:52:09 Baseline sample Acquired. 13:52:25 Rhythm: sinus rhythm 13:52:37 Full Disclosure recording started 13:52:41 Pre-procedure instructions explained to patient. 13:52:42 Pre-op teaching completed and patient verbalized understanding. 13:52:44 Family in waiting room. 13:52:50 Patient NPO since Midnight. 13:52:57 Is the patient allergic to Iodine/contrast media? No. 13:53:44 Is patient on blood thinner?No 13:54:18 Patient diabetic? Yes. 13:54:24 If diabetic: On Metformin? No 13:54:27 ----Pre-sedation anethsthesia assessment.---- 13:54:33 Previous problem with sedation/anesthesia? No ? 13:54:36 Snore? Yes 13:54:38 Sleep apnea? No 13:54:43 Deviated septum? No 13:54:45 Opens mouth fully? Yes 13:54:47 Sticks out tongue? Yes 13:55:18 Airway obstruction? No ? 13:55:23 Dentures? No ? 13:55:29 Pre procedure: right dorsailis pedis pulse 1+ Palpable, but thready & weak; easily obliterated 13:55:50 Patient pain scale 0/10 ?. 13:55:59 IV patent on arrival in left forearm with 0.9% NaCl at O. 13:56:17 Lab results completed and on chart. 13:56:20 Right groin area was prepped with chlora-prep and draped in sterile fashion 13:56:23 Alarms reviewed by R. N. 13:56:24 Sharps counted by scrub and verified by R.N. 13:56:45 Physician arrived 13:56:46 --------ALL STOP TIME OUT------ 13:56:47 Final Timeout: patient, procedure, and site verified with staff and physician. All members of the team are in agreement. 13:56:49 Right groin site verified by team. 13:56:55 Fire Safety Assessment: A--An alcohol-based skin anteseptic being used preoperatively., C--Open oxygen or nitrous oxide is being used., D--An ESU, laser, or fiber-optic light is being used. 13:57:01 Physical assessment completed. ASA score P 2 - A patient with mild systemic disease as per Jerod Hughes MD. 13:57:10 2) 60-89 Mildly reduced kidney function, and other findings (as for stage 1) point to kidney disease. 13:57:17 Maximum allowable contrast dose (3.7 X eGFR X 0.75)178 ml. 13:57:24 Sedation plan: IV Moderate Sedation Medication:Versed, Fentanyl 13:57:37 Use device set Femoral Dx 13:57:39 ACIST Syringe (24150) opened to sterile field. 13:57:40 Bag Decanter (2002) opened to sterile field. 13:57:41 Medline Cath Pack ([id number]) opened to sterile field. 13:57:45 ACIST Hand Control (05593) opened to sterile field. 13:57:46 ACIST Manifold (24927) opened to sterile field. 13:57:48 Tegaderm 4 x 4 (1626W) opened to sterile field. 13:57:50 SHEATH 5FR [place] (UHJ439) opened to sterile field. 13:57:51 EMERALD Guide Wire (716-339) opened to sterile field. 14:00:13 0.9% NaCl 100 ml/hr I.V. was administered by Israel Wagner RN; Per physician; Verbal order read back and verified. 14:00:14 Indication : Dyspnea 14:00:22 Oxygen 2 l/min etCO2 Nasal cannula was administered by Israel Wagner RN; for low 02 sats; Verbal order read back and verified. 14:00:34 Heparin Flush Bag (1000units/500ml NS) 2 bags added to field was administered by Israel Wagner RN; used for procedure; Verbal order read back and verified. 14:00:45 Lidocaine 2% 20ml vial added to field was administered by Israel Wagner RN; for local anesthetic; Verbal order read back and verified. 14:01:02 Versed 1 mg I.V. was administered by Israel Wagner RN; for sedation; Verbal order read back and verified. 14:01:04 ACCPatient has been prescribed/administered the following anti-anginal medication within the last 2 weeks: Beta Teresa, ARB 14:01:10 Fentanyl 50 mcg I.V. was administered by Israel Wagner RN; for sedation; Verbal order read back and verified. 14:03:12 Procedure started. 14:03:24 Local anesthetic to right femoral artery with Lidocaine 2% by Jerod Hughes MD.INITIAL ACCESS ONLY 14:04:07 Zero performed for pressure channel P1 14:04:33 A 5 Fr sheath was inserted into the Right Femoral artery 14:04:51 A MULTIPACK JL 4.0 5Fr catheter was advanced over the wire and used for Left Coronary Angiography. 14:05:12 LCA angiography performed. 14:05:23 Injector settings: Ml/sec: 3, Volume: 5, 14:06:06 Catheter removed. 14:06:15 A MULTIPACK 3DRC 5Fr catheter was advanced over the wire and used for Right Coronary Angiography. 14:06:57 RCA angiography performed. 14:07:09 Injector settings: Ml/sec: 3, Volume: 5, 14:07:23 ACCDominant side:Co-Dominant 14:07:31 Catheter removed. 14:07:40 A MULTIPACK Pigtail 5 Fr catheter was advanced over the wire and used for LV Angiography. 14:07:48 DIAGNOSTIC Multipack 5Fr catheter set ([id number]) opened to sterile field. 14:09:50 LV hemodynamics recorded. 14:09:55 LV gram done using GUNN 14:10:12 EF : 55 % 14:10:17 Catheter removed. 14:10:47 Injector settings: Ml/sec: 10, Volume: 20, 14:11:03 EXOSEAL 5Fr (EX500) opened to sterile field. 14:12:08 Sheath removed intact; hemostasis achieved with Exoseal to the Right Femoral artery. 14:12:12 Procedure ended.(Physican Out) 14:12:52 Fluoroscopy time 02.50 minutes. 14:12:57 Fluoroscopy dose: 319 mGy 14:12:57 Flurop Dose total: 319 14:13:09 Dose Area Product 41539 mGy/cm. 14:13:18 Contrast amount:Isovue 300 82ml. 14:13:22 Maximum allowable dose exceeded? No. 14:13:24 Sharps counted by scrub and verified by R.N. 14:13:26 Insertion/operative site no bleeding no hematoma. 14:13:31 Post-op/insertion site Right Femoral artery dressed using a 4 x 4 and Tegaderm. 14:13:56 Post Procedure Pulses reassessed and unchanged 14:14:03 Post-procedure physical assessment completed. ASA score P 2 - A patient with mild systemic disease as per Jerod Hughes MD. 14:14:10 Post procedure rhythm: sinus rhythm 14:14:15 Estimated blood loss: 5 ml 14:14:38 Post procedure instruction explained to patient.Patient verbalizes understanding. 14:14:39 Patient needs reinforcement of post procedure teaching. 14:15:22 Procedure and supply charges have been captured, reviewed, submitted and are correct. 14:15:59 Procedure Complication : No complications 14:16:04 Vital chart was stopped 14:16:05 Operative report dictated upon procedure completion. 14:16:06 See physician's report for complete and final results. 14:16:09 Report given to Pre/Post Procedure Room. 14:16:17 Patient transfered to Pre/Post Procedure Room with Stretcher. 14:16:20 Full Disclosure recording stopped 14:16:20 Procedure ended. 14:16:24 End room use (Document Last) Device Usage Item Name Manufacture Quantity Catalog Hospital Part Current Minimal L ot# / Number Charge Number Stock Stock Serial# Code ACIST Acist 1 76304 [id number] 726314 [id number] 20 Syringe Medical (84492) Systems Inc Bag Microtek 1 2001S 327276 84317 716317 5 Decanter Medical Inc. (2001S) Medline Medline 1 [id number] 911947 34529 673783 5 Cath Pack ([id number]) ACIST Hand Acist 1 35478 933504 020904 378629 5 Control Medical (49533) Systems Inc ACIST Acist 1 85489 496092 621905 747516 5 Manifold Medical (39775) Systems Inc Tegaderm 4 3M 1 1626W 904482 141980 635525 5 x 4 (1626W) SHEATH 5FR Terumo 1 QVZ159 275750 019282 745342 5 [place] (UQJ277) EMERALD Cardinal 1 502-455 871703 238432 757357 5 Guide Wire Health (502-455) MULTIPACK Cardinal 1 544862 5 JL 4.0 5Fr Health catheter MULTIPACK Cardinal 1 095743 5 3DRC 5Fr Health catheter MULTIPACK Cardinal 1 755188 5 Pigtail 5 Health Fr catheter DIAGNOSTIC Cardinal 1 EI7992 895338 23860 831991 30 Multipack Health 5Fr catheter set (DF1171) EXOSEAL 5Fr Cardinal 1 EX500 510498 197385 057097 10 (EX500) Health Signature Audit [place] Stage Time Signature Unsigned Intra-Procedure 08/23/2019 Margarita 2:16:58 PM Ed RT(R) (CV) Intra-Procedure 08/23/2019 Israel 2:17:34 PM Kristy WARD Intra-Procedure 08/24/2019 Jerod Alvarez 8:38:25 AM Matt [address] [place] [id number] [place] [address]
[~2019-08-23 11:38] MED LIST changes: +EC-NAPROSYN500 MG PO
[2019-08-23 12:11] VITALS: BP 147/69; Ht 157.5 cm; Wt 85.0 kg
[2019-08-23 12:44] LABS: BASOPHILS 0.4 % (0-2); EOSINOPHILS 1.5 % (0-7); HEMATOCRIT 42.9 % (36.0-48.0); HEMOGLOBIN 14.4 g/dL (12-16); IMMATURE GRANULOCYTES 0.3 % (0-5); LYMPHOCYTES 32.8 % (15-50); MCH 30.2 pg (26.0-34.0); MCHC 33.6 g/dL (31.0-37.0); MCV 89.9 fL (80.0-100.0); MEAN PLATELET VOLUME 9.4 fL (7.4-10.4); MONOCYTES 8.3 % (2-11); NEUTROPHILS 56.7 % (40-80); RBC 4.77 10x6/uL (4.00-5.40); RDW 12.9 % (11.5-14.5)
[2019-08-23 12:45] LABS: PLATELET COUNT 214 10x3/uL (130-400)
[2019-08-23 12:57] LABS: ANION GAP 13.4 mmol/L (8-16); CALCIUM 8.7 mg/dL (8.5-10.1); CHOL - HDL RATIO 3.6 ratio (2.3-4.1); CREATININE - SERUM 0.9 mg/dL (0.6-1.3); LDL-HDL RATIO 1.7 ratio (1.5-3.5); POTASSIUM - SERUM 3.4 mmol/L (3.5-5.1)
--- NOTE | 2019-08-23 14:26 | NUR ---
PT ARRIVED BY STRETCHER. PLACED ON MONITORS. ASSESSMENT COMPLETED. FAMILY AT BEDSIDE. DR. OREILLY ROUNDED AND SPOKE WITH FAMILY AND PT.
--- NOTE | 2019-08-23 14:41 | NUR ---
RIGHT GROIN DRESSING C/D/I NO S/S OF HEMATOMA NOTED CALL LIGHT WITHIN REACH FAMILY AT BEDSIDE
--- NOTE | 2019-08-23 15:11 | NUR ---
PT RESTING COMFORTABLY. VSS. RIGHT GROIN DRESSING C/D/I. NO S/S OF HEMATOMA NOTED. CALL LIGHT WITHIN REACH.
--- NOTE | 2019-08-23 15:30 | NUR ---
PT ON BEDPAN. VOIDED WITHOUT DIFFICULTY. HEAD OF BED INC TO 30 DEGREES. TOLERATED WELL. CALL LIGHT WITHIN REACH. RIGHT GROIN DRESSING C/D/I. NO S/S OF HEMATOMA NOTED. WILL CONTINUE TO MONITOR.
--- NOTE | 2019-08-23 15:45 | NUR ---
PT SET UP WITH SANDWICH TRAY AND DRINK. RIGHT GROIN DRESSING C/D/I. NO S/S OF HEMATOMA NOTED. CALL LIGHT WITHIN REACH. FAMILY AT BEDSIDE.
--- NOTE | 2019-08-23 16:15 | NUR ---
PIV D/C'D WITH CATH TIP INTACT. PT TOLERATED WELL. CALL LIGHT WITHIN REACH. FAMILY AT BEDSIDE. DISCUSSED DISCHARGE INSTRUCTIONS WITH PT AND PT'S FAMILY. THEY VOICED UNDERSTANDING. PT AMBULATED TO RESTROOM. VOIDED WITHOUT DIFFICULTY. BACK TO ROOM AND C/O FEELING DIZZY. LAID DOWN ON STRETCHER. PLACED BACK ON MONITOR. ASSESSMENT COMPLETED. HR 64. BP 170/66. PT SIPPING ON WATER. DENIES NAUSEA. RIGHT GROIN DRESSING C/D/I. NO S/S OF HEMATOMA NOTED. O2 SAT 95% ON ROOM AIR. WILL MONITOR PT UNTIL SHE IS FEELING MORE ALERT AND STABLE. FAMILY AT BEDSIDE.
--- NOTE | 2019-08-23 16:40 | NUR ---
PT ALERT AND ORIENTED X 4. FAMILY AT BEDSIDE. O2 SAT 94% ON ROOM AIR. HR 61. BP 166/63. DENIES PAIN/NAUSEA.
--- NOTE | 2019-08-23 16:50 | NUR ---
PT REPORTS FEELING BETTER. DENIES NAUSEA/PAIN. VSS AT THIS TIME. RIGHT GROIN DRESSING C/D/I. NO S/S OF HEMATOMA NOTED. FAMILY AT BEDSIDE AND ASSISTED PT TO GET DRESSED. NO ISSUES NOTED WHILE PT GETTING DRESSED. TAKEN OUT TO VEHICLE BY WHEELCHAIR. NO S/S OF DISTRESS NOTED. ALL BELONGINGS AND PAPERWORK IN HAND.
--- NOTE | 2019-08-24 11:08 | OP ---
PATIENT NAME: WILL HAYNES MEDICAL RECORD: [id number] :40 LOCATION:D.CAT ADMISSION DATE: SURGEON: MAINE WEST MD DATE OF OPERATION: 08/23/2019 PROCEDURES: Left heart catheterization, selective coronary angiography, right femoral artery approach. CATHETERS: A 5-Khmer sheath, 5/4 left and right Freddy, 5/4 pig. The procedure was well tolerated. The patient returned to the arredondo, sheath removed. ExoSeal device was placed. FINDINGS: Left ventriculography in 30-degree GUNN view: Normal wall motion, normal systolic function. CORONARY ANATOMY: LEFT MAIN: Left main is free of disease. LAD: Free of disease in the diagonal system. CIRCUMFLEX: Free of disease in the marginal system. RIGHT CORONARY ARTERY: An area of previous stenting is widely patent without evidence of re-stenosis. No evidence of progression of [place] disease. IMPRESSION: Normal LV systolic function. Normal coronary anatomy without evidence of restenosis. TRANSINT:[id number] Voice Confirmation ID: [id number] DOCUMENT ID: [id number] MAINE WEST MD at 1108 CC: [id number] DICTATION DATE: 08/23/19 1418 ACTIVITY MANAGER: 08/23/19 2216 DEP CLI 08/23/19 [facility] [address] [place] [address]
== END 2019-08-23 16:50 | disposition home or self-care (01) ==
LOC: D.CATH 11:38
PROVIDERS: ATTEND Internal Medicine Interventional Cardiology
DX: I25.110 Atherosclerotic heart disease of native coronary artery with unstable angina pectoris (principal); R06.02 Shortness of breath; I10 Essential (primary) hypertension

== ENCOUNTER 2019-09-13 20:04 | Emergency (ER) | payer MEDICARE ==
[~2019-09-13] VITALS: Ht 157.5 cm; Wt 85.0 kg
[2019-09-13 20:08] VITALS: Ht 157.5 cm; Wt 85.0 kg
[2019-09-13] MEDS ORDERED: LODINE400 MG (20:16)
[2019-09-13 21:17] LABS: BASOPHILS 0.5 % (0-2); EOSINOPHILS 1.5 % (0-7); HEMATOCRIT 40.6 % (36.0-48.0); HEMOGLOBIN 13.3 g/dL (12-16); IMMATURE GRANULOCYTES 0.3 % (0-5); LYMPHOCYTES 23.9 % (15-50); MCH 30.2 pg (26.0-34.0); MCHC 32.8 g/dL (31.0-37.0); MCV 92.1 fL (80.0-100.0); MEAN PLATELET VOLUME 9.3 fL (7.4-10.4); MONOCYTES 6.5 % (2-11); NEUTROPHILS 67.3 % (40-80); PLATELET COUNT 202 10x3/uL (130-400); RBC 4.41 10x6/uL (4.00-5.40); RDW 12.7 % (11.5-14.5); WBC 8.8 10x3/uL (4.8-10.8)
[2019-09-13 21:25] LABS: APTT 27.3 SECONDS (22.8-39.4); INR 0.99 (0.85-1.17); PROTIME 12.6 SECONDS (11.6-15.0)
[2019-09-13 21:27] LABS: CALC OSMOLALITY 284 mosm/kg (275-300); CALCIUM 8.3 mg/dL (8.5-10.1); CARBON DIOXIDE 31.4 mmol/L (21.0-32.0); CHLORIDE - SERUM 103 mmol/L (98-107); CREATININE - SERUM 0.9 mg/dL (0.6-1.3); GLUCOSE 196 mg/dL (74-106); POTASSIUM - SERUM 3.8 mmol/L (3.5-5.1); SODIUM 139 mmol/L (136-145); UREA NITROGEN 18 mg/dL (7-18); eGFR NON AFRICAN AMERICAN 64 mL/min (90-120)
[2019-09-13 21:46] LABS: ALBUMIN 3.2 g/dL (3.4-5.0); ALKALINE PHOSPHATASE 79 U/L (46-116); ALT (SGPT) 29 U/L (10-68); BILIRUBIN - TOTAL 0.23 mg/dL (0.2-1.3); CKMB 0.2 U/L (0.0-3.6); CREATINE KINASE 28 UL (21-215); MAGNESIUM - SERUM 1.4 mg/dL (1.8-2.4); PRO BNP 735 pg/mL (0-450); PROTEIN - SERUM 6.4 g/dL (6.4-8.2); THYROID STIMULATING HORMONE 3.64 uIU/mL (0.36-3.74)
[2019-09-13 21:47] LABS: TROPONIN-I < 0.017 ng/mL (0.000-0.060)
[2019-09-13] MEDS ORDERED: FUROSEMIDE20 MG PO (21:56)
[2019-09-13] MEDS ORDERED: ANTIVERT12.5 MG PO (21:57)
[2019-09-13 22:22] VITALS: BP 152/72
== END 2019-09-13 22:22 | disposition home or self-care (01) ==
LOC: D.ER 20:04
PROVIDERS: Emergency Medicine
DX: H61.21 Impacted cerumen, right ear (principal); R42 Dizziness and giddiness; E11.9 Type 2 diabetes mellitus without complications; I10 Essential (primary) hypertension